=== PATIENT | male | born 1995 | race Two or more races ===

== ENCOUNTER 2019-12-02 13:24 | Emergency (ER) | payer BC ==
--- NOTE | 2019-12-02 14:32 | EDM.PDOC ---
ED HPI GENERAL MEDICAL PROBLEM - General Chief Complaint: Skin Complaint Stated Complaint: FISHCLIFFORD L HAND Time Seen by Provider: 12/02/19 14:25 Source of Information: Reports: Patient History Limitations: Reports: No Limitations - History of Present Illness INITIAL COMMENTS - FREE TEXT/NARRATIVE: Michel is a 24 year old male who presents to the ED today with fish hook in left hand, denies any other injuries. DT is up to date. Onset: Today, Sudden - Related Data Allergies Allergy/AdvReac Type Severity Reaction Status Date / Time No Known Allergies Allergy Verified 12/02/19 14:17 Home Meds: Home Meds Dextroamphetamine/Amphetamine [Adderall 5 mg Tablet] 5 mg PO DAILY 12/02/19 [History] Past Medical History - Past Health History Medical/Surgical History: Denies Medical/Surgical History Social & Family History - Tobacco Use Smoking Status *Q: Never Smoker ED ROS GENERAL - Review of Systems Review Of Systems: Comprehensive ROS is negative, except as noted in HPI. ED EXAM, SKIN/RASH Exam: See Below Exam Limited By: No Limitations General Appearance: Alert, WD/WN, No Apparent Distress Head: Atraumatic Neck: Normal Inspection Respiratory/Chest: No Respiratory Distress Cardiovascular: Regular Rate, Rhythm Back Exam: Normal Inspection Extremities: Normal Inspection Neurological: Alert Psychiatric: Normal Affect Skin: Warm, Other (fish hook left hand, thenar eminence, full ROM of all digtis.) Course - Vital Signs Last Recorded V/S: Last Vital Signs Temp 36.4 C 12/02/19 14:22 Pulse 77 12/02/19 14:22 Resp 14 12/02/19 14:22 BP 146/65 H 12/02/19 14:22 Pulse Ox 99 12/02/19 14:22 Fish hook left hand, area of entry injected with 3 ml's of 1% lidocaine, 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 Reason to return discussed, patient agreeable and discharged in stable condition. - Orders/Labs/Meds Meds: Medications Discontinued Medications Generic Name Dose Route Start Last Admin Trade Name Freq PRN Reason Stop Dose Admin Lidocaine HCl 5 ml 12/02/19 14:20 Xylocaine-Mpf 1% INJECT 12/02/19 14:21 ONETIME ONE Departure - Departure Time of Disposition: 14:45 Disposition: Home, Self-Care 01 Condition: Good Clinical Impression: Fish hook injury of hand Qualifiers: Encounter type: initial encounter Laterality: left Qualified Code(s): S69.92XA - Unspecified injury of left wrist, hand and finger(s), initial encounter - Discharge Information Instructions: Hand or Foot Foreign Body, Adult Referrals: PCP,None [Primary Care Provider] - Forms: ED Department Discharge Additional Instructions: Keep wound clean and dry. Bacitracin twice daily for 3 days. Good luck with any future fishing. Sepsis Event Note (ED) - Evaluation Sepsis Screening Result: No Definite Risk - Focused Exam Vital Signs: Vital Signs Temp Pulse Resp BP Pulse Ox 12/02/19 14:22 36.4 C 77 14 146/65 H 99
== END 2019-12-02 14:44 | disposition home or self-care (01) ==
LOC: JP.ED 13:24
DX: S60.552A Superficial foreign body of left hand, initial encounter (principal); W45.8XXA Other foreign body or object entering through skin, initial encounter
CPT/HCPCS: 99283; J2001